=== PATIENT | female | born 1995 | race Caucasian/White ===

== ENCOUNTER 2019-03-25 12:26 | Inpatient (IN) | payer MEDICAID ==
[~2019-03-25] VITALS: Ht 154.9 cm; Wt 77.0 kg
[~2019-03-25 12:26] MED LIST: PNV11TAB PO; PREN1TAB13 PO
[2019-03-25 13:13] VITALS: Ht 154.9 cm; Wt 77.0 kg
[2019-03-25 13:16] VITALS: BP 115/75; PULSE 114; RESP 20
[2019-03-25] MEDS ORDERED: MISOPROSTOL 200 MCG TAB PR PRN (14:30)
[2019-03-25] MEDS ORDERED: LIDOCAINE 1% (MPF) 30 ML INJ INJ PRN (14:30)
[2019-03-25] MEDS ORDERED: IBUPROFEN 600 MG TAB PO PRN (14:30)
[2019-03-25] MEDS ORDERED: OXYTOCIN 30 UNITS/LR 500 ML IV SCH ×2 (14:30)
[2019-03-25] MEDS ORDERED: MINERAL OIL LIGHT 10 ML VIAL TOP PRN (14:30)
[2019-03-25] MEDS ORDERED: METHYLERGONOVINE 0.2 MG INJ IM PRN (14:30)
[2019-03-25] MEDS ORDERED: CARBOPROST 250 MCG INJ IM PRN (14:30)
[2019-03-25] MEDS ORDERED: OXYTOCIN 30 UNITS/LR 500 ML IV PRN (14:30)
[2019-03-25] MEDS ORDERED: BUTORPHANOL 2 MG INJ IV PRN ×2 (14:30)
[2019-03-25] MEDS: LACTATED RINGER'S 1,000 ML IV SCH ×2 (19:03→23:17)
[2019-03-26] MEDS: LACTATED RINGER'S 1,000 ML IV SCH ×2 (06:08→14:17)
== END 2019-03-26 18:58 | disposition home or self-care (01) | DRG 833 ==
LOC: OBT 12:26 → L-D 12:27 → OBT 14:00 → L-D 14:37
PROVIDERS: ADMIT Obstetrics & Gynecology; ATTEND Obstetrics & Gynecology
DX: O46.93 Antepartum hemorrhage, unspecified, third trimester (principal); Z3A.38 38 weeks gestation of pregnancy
CPT/HCPCS: 76815; 76818; 85025; 85610; 85730; 86592; 86900; 86901; 87340; G0463; J7120